=== PATIENT | female | born 1990 | race Caucasian/White ===

== ENCOUNTER 2018-11-17 13:19 | Emergency (ER) | payer OTHER ==
[2018-11-17] MEDS ORDERED: KETOROLAC 60 MG/2 ML VIAL IM STA (14:00)
[2018-11-17] MEDS ORDERED: HYDROmorphone 1 MG/ML CARPUJECT IM STA (14:00)
--- NOTE | 2018-11-17 14:06 | ED Physician Documentation ---
PD HPI BACK PAIN - Stated complaint Stated Complaint: BACK PX - Chief complaint Chief Complaint: Back Pain - History obtained from History obtained from: Patient - History of Present Illness Timing - onset: Other (She has chronic low back pain, to some extent she has pain every day. But does not need to take anything for it except when it flares. For the last 2 days she has had severe low back pain in the right low back radiating into the right buttock with a shooting pain down the right leg. This is her usual pain. It was unrelieved by taking a Percocet last night. She denies bowel or bladder trouble or weakness, numbness, or tingling in the legs. There is no fever. MRI from 2015 reviewed, potential for L5 radicular symptoms and a small disc protrusion at L4-L5.) Review of Systems Constitutional: denies: Fever, Chills Cardiac: reports: Reviewed and negative Respiratory: reports: Reviewed and negative GI: reports: Reviewed and negative PD PAST MEDICAL HISTORY - Past Medical History Cardiovascular: None Respiratory: None Endocrine/Autoimmune: None Musculoskeletal: Chronic back pain - Past Surgical History Past Surgical History: No - Present Medications Home Medications: Ambulatory Orders Medication Instructions Recorded Confirmed Cyclobenzaprine [Flexeril] 10 mg PO TID PRN #20 tablet 11/17/18 Oxycodone HCl/Acetaminophen 1 each PO PRN PRN 11/17/18 11/17/18 [Oxycodone-Acetaminophen 5-325] Oxycodone HCl/Acetaminophen 1 each PO Q4H PRN #15 tablet 11/17/18 [Percocet 10-325 mg Tablet] predniSONE [Deltasone] 20 mg PO [id number] #21 tab 11/17/18 - Allergies Allergies/Adverse Reactions: Allergies Allergy/AdvReac Type Severity Reaction Status Date / Time No Known Drug Allergies Allergy Verified 11/17/18 13:33 - Social History Does the pt smoke?: Yes Smoking Status: Current every day smoker Does the pt drink ETOH?: Yes Does the pt have substance abuse?: No - Immunizations Immunizations are current?: Yes - POLST Patient has POLST: No PD ED PE NORMAL - Vitals Vital signs reviewed: Yes - General General: Alert and oriented X 3, Other (in pain) - Abdomen Abdomen: Normal bowel sounds, Soft, Non tender - Back Back: No spinal TTP, Other (Tender to the right paralumbar musculature. The p atient has equal and normal Achilles and patellar reflexes bilaterally. Normal sensation in all areas of the legs. Patient denies saddle anesthesia. Normal strength in flexion-extension at the ankles, knees, and flexion of the hips.) - Neuro Neuro: Alert and oriented X 3, Normal speech - Psych Psych: Normal mood, Normal affect Results - Vitals Vitals: Vital Signs - 24 hr 11/17/18 13:30 Temperature 36.3 C L Heart Rate 100 Respiratory 14 Rate Blood Pressure 139/88 H O2 Saturation 99 Oxygen O2 Source Room air - Labs Labs: Laboratory Tests 11/17/18 14:39 Urine Color YELLOW Urine Clarity CLEAR Urine pH 6.0 Ur Specific [place] 1.015 Urine Protein NEGATIVE Urine Glucose (UA) NEGATIVE Urine Ketones NEGATIVE Urine Occult Blood NEGATIVE Urine Nitrite NEGATIVE Urine Bilirubin NEGATIVE Urine Urobilinogen 0.2 (NORMAL) Ur Leukocyte Esterase NEGATIVE Ur Microscopic Review NOT INDICATED Urine Culture Comments NOT INDICATED Urine HCG, Qual NEGATIVE PD MEDICAL DECISION MAKING - ED course ED course: This is a 28-year-old woman who presents with an exacerbation of tonic back pain without red flags for cauda equina or epidural abscess. She was administered IM Dilaudid and Toradol with significant improvement. Departure - Departure Disposition: 01 Home, Self Care Clinical Impression: Spondylolisthesis of lumbosacral region, Exacerbation of chronic back pain Condition: Good Record reviewed to determine appropriate education?: Yes Instructions: ED Neck Back Pain General Prescriptions: Cyclobenzaprine [Flexeril] 10 mg PO TID PRN #20 tablet PRN Reason: Spasms Oxycodone HCl/Acetaminophen [Percocet 10-325 mg Tablet] 1 each PO Q4H PRN #15 tablet PRN Reason: Pain predniSONE [Deltasone] 20 mg PO [id number] #21 tab Comments: Follow-up with your primary care physician, next available appointment. Return for new or worsening symptoms
[2018-11-17 14:52] LABS: BILIRUBIN,URINE NEGATIVE (NEGATIVE); GLUCOSE, URINE (UA) NEGATIVE (NEGATIVE); KETONES,URINE (UA) NEGATIVE (NEGATIVE); LEUKOCYTE ESTERASE, URINE NEGATIVE (NEGATIVE); NITRITE,URINE NEGATIVE (NEGATIVE); OCCULT BLOOD,URINE NEGATIVE (NEGATIVE); PROTEIN,URINE NEGATIVE (NEGATIVE); UROBILINOGEN,URINE 0.2 (NORMAL) E.U./dL (NORMAL)
[2018-11-17 14:58] LABS: CLARITY,URINE CLEAR (CLEAR); HCG UR QUAL NEGATIVE
[2018-11-17 15:13] VITALS: BP 105/59
== END 2018-11-17 15:12 | disposition home or self-care (01) ==
LOC: ED 13:19
DX: M43.17 Spondylolisthesis, lumbosacral region (principal); G89.29 Other chronic pain; M51.26 Other intervertebral disc displacement, lumbar region; F17.200 Nicotine dependence, unspecified, uncomplicated
CPT/HCPCS: 81003; 81025; 96372; 99283; 99284; J1170; 81001; 87086